=== PATIENT | male | born 1995 | race Caucasian/White ===

== ENCOUNTER 2017-05-16 15:14 | Emergency (ER) | payer BC, OTHER ==
[~2017-05-16] VITALS: Ht 180.3 cm; Wt 61.0 kg
[2017-05-16 15:15] VITALS: TEMP 36.6; O2SAT 98; Ht 180.3 cm; Wt 61.0 kg
[2017-05-16] MEDS ORDERED: LIDOCAINE/EPINEPH/TETRACAINE 1 EA SYR EXT SCH (15:30)
[2017-05-16 16:10] LABS: CALCIUM 8.5 mg/dl (8.5-10.1); CREATININE 0.92 mg/dl (0.60-1.40); POTASSIUM 3.6 mmol/L (3.5-5.1)
[2017-05-16] MEDS ORDERED: XYLOCAINE 1%/SOD BICARB 20 ML VIAL INFIL ONE (16:59)
--- NOTE | 2017-05-16 17:16 | DIAGNOSTIC IMAGING REPORT ---
CT OF THE CERVICAL SPINE CLINICAL HISTORY: Neck pain status post trauma COMPARISON STUDY: No previous studies for comparison. CT DOSE: TECHNIQUE: CT scan of the cervical spine was performed from the skull base to the thoracic inlet. Images are reviewed in the axial, sagittal, and coronal planes. IV contrast was not administered for this examination. A dose lowering technique was utilized adhering to the principles of ALARA. FINDINGS: The visualized portions of the lung apices reveal no evidence of pneumothorax. The prevertebral soft tissues are normal. No fractures or subluxations are visualized. IMPRESSION: No evidence of acute fracture or traumatic subluxation. Electronically signed by: Cody Cortez M.D. 05/16/2017 5:15 PM Dictated Date/Time: 05/16/2017 5:12 PM
--- NOTE | 2017-05-16 17:16 | DIAGNOSTIC IMAGING REPORT ---
CT HEAD WITHOUT CONTRAST (CT) CLINICAL HISTORY: Head pain status post trauma COMPARISON STUDY: No previous studies for comparison. TECHNIQUE: Axial CT of the brain is performed from the vertex to the skull base. IV contrast was not administered for this examination. A dose lowering technique was utilized adhering to the principles of ALARA. CT DOSE: 1017.33 mGy.cm FINDINGS: There is motion artifact degrading the vertex. No intra or extra-axial mass lesions are visualized. There is no CT evidence of acute cortical infarction. There is no evidence of midline shift. There is no acute hemorrhage. No calvarial fractures are visualized. There is no evidence of pathologic ventricular dilatation. There is a small inflammatory polyp/retention cyst within the sphenoid. IMPRESSION: Study compromised by motion artifact. No acute intracranial findings Electronically signed by: Cody Cortez M.D. 05/16/2017 5:15 PM Dictated Date/Time: 05/16/2017 5:10 PM
[2017-05-17 00:09] VITALS: BP 119/70; PULSE 71; O2SAT 99
--- NOTE | 2017-05-17 00:35 | EMERGENCY ROOM VISIT NOTE ---
History First contact with patient: 15:16 Chief Complaint: ALCOHOL OVERDOSE Stated Complaint: ETOH, FALL, LAC ABOVE R EYE History of Present Illness The patient is a 22 year old male who presents to the Emergency Room via ambulance for evaluation of injuries after suffering a fall. The patient reportedly has a right forehead laceration. The patient did vomit on route to our facility. Upon further questioning, the patient is not very conversant, and does not quantify the amount of alcohol he drank. When asked if the patient is a student here at [facility], he denies. The patient denies any pain. Review of Systems Unable to review on initial exam secondary to intoxicated state. Upon reevaluation, 10 system review was performed with the patient, and was unremarkable. Past Medical/Surgical History Medical Problems: (1) No significant past medical history Surgical Problems: (1) No history of previous surgery Family History Unremarkable Social History Smoking Status: Never Smoker Alcohol Use: occasionally Marital Status: single Current/Historical Medications Unable to Obtain Active Prescriptions or Reported Meds Physical Exam Vital Signs Date Time Temp Pulse Resp B/P (MAP) Pulse Ox O2 Delivery O2 Flow Rate FiO2 05/17/17 00:09 71 20 119/70 99 05/16/17 22:42 79 20 123/66 98 Room Air 05/16/17 22:06 78 20 113/69 97 Room Air 05/16/17 21:08 83 19 98/53 100 Room Air 05/16/17 20:36 81 17 89/49 05/16/17 19:46 85 18 101/47 05/16/17 19:21 81 05/16/17 19:08 88 20 108/62 05/16/17 18:30 82 18 109/63 97 Room Air 05/16/17 17:49 82 18 98/53 96 Room Air 05/16/17 16:13 81 20 108/65 99 Room Air 05/16/17 15:43 76 20 113/76 97 Room Air 05/16/17 15:25 74 05/16/17 15:15 98 Room Air 05/16/17 15:15 36.6 82 16 121/79 99 Room Air Physical Exam CONSTITUTIONAL: Healthy and well nourished appearing male. GCS score of 12 with spontaneous eye opening, verbal response with inappropriate words, and motor response moving with localize pain. When asked, the patient states that he is not a [facility] student. HEENT: Examination shows a 2 cm horizontal laceration just above the right upper eyebrow margin. No active bleeding or hematoma. Pupils equal, round and reactive. No subconjunctival hemorrhage, epistaxis, hemotympanum, raccoon's eyes or Faria sign. NECK: The patient is exhibiting full active range of motion without discomfort. RESPIRATORY: Clear to auscultation bilaterally with no wheezing, crackles, rhonchi or stridor. CARDIOVASCULAR: Regular rate and rhythm with no murmurs, rubs or gallops. GASTROINTESTINAL: Bowel sounds present in all quadrants. Soft and nontender to palpation. MUSCULOSKELETAL: Full range of motion of all joints without any obvious discomfort. INTEGUMENTARY: No rash or other significant dermatologic conditions noted. NEUROLOGIC: No focal neurologic deficits noted. Medical Decision & Procedures ER Provider Diagnostic Interpretation: Noncontrast CT of the head and cervical spine did not show any acute fractures or intracranial bleed. Radiologist reports were also reviewed and are as follows: CT HEAD WITHOUT CONTRAST (CT) CLINICAL HISTORY: Head pain status post trauma COMPARISON STUDY: No previous studies for comparison. TECHNIQUE: Axial CT of the brain is performed from the vertex to the skull base. IV contrast was not administered for this examination. A dose lowering technique was utilized adhering to the principles of ALARA. CT DOSE: 1017.33 mGy.cm FINDINGS: There is motion artifact degrading the vertex. No intra or extra-axial mass lesions are visualized. There is no CT evidence of acute cortical infarction. There is no evidence of midline shift. There is no acute hemorrhage. No calvarial fractures are visualized. There is no evidence of pathologic ventricular dilatation. There is a small inflammatory polyp/retention cyst within the sphenoid. IMPRESSION: Study compromised by motion artifact. No acute intracranial findings CT OF THE CERVICAL SPINE CLINICAL HISTORY: Neck pain status post trauma COMPARISON STUDY: No previous studies for comparison. CT DOSE: TECHNIQUE: CT scan of the cervical spine was performed from the skull base to the thoracic inlet. Images are reviewed in the axial, sagittal, and coronal planes. IV contrast was not administered for this examination. A dose lowering technique was utilized adhering to the principles of ALARA. FINDINGS: The visualized portions of the lung apices reveal no evidence of pneumothorax. The prevertebral soft tissues are normal. No fractures or subluxations are visualized. IMPRESSION: No evidence of acute fracture or traumatic subluxation. Laboratory Results 05/16/17 15:31 Test 05/16/17 15:31 Anion Gap 8.0 mmol/L (3-11) Est Creatinine Clear Calc Drug Dose 108.7 ml/min Estimated GFR () 136.4 Estimated GFR (Non- 117.6 BUN/Creatinine Ratio 9.8 (10-20) Calcium Level 8.5 mg/dl (8.5-10.1) Ethyl Alcohol mg/dL 411.3 mg/dl (0-3) The above labs were reviewed. Medications Administered Medications (Trade) Dose Ordered Sig/Falguni Route Start Time Stop Time Status Last Admin Dose Admin Lidocaine HCl (Buffered Lidocaine 1% Inj) 20 ml [facility] ONCE INFIL 05/16/17 16:59 05/16/17 17:00 DC 05/16/17 16:59 20 ML Procedure Laceration repair was performed under local anesthesia. Using buffered 1% lidocaine without epinephrine, good local anesthesia was administered. The peripheral tissue was cleansed with iodine, then the wound was irrigated with normal saline. Exploration of the wound does not show any obvious debris or bony injury. The wound was then approximated using 6-0 nylon simple interrupted sutures. Bacitracin dressing was applied. ED Course Patient history and physical exam were performed. Nurse's notes were reviewed. The patient does not appear in any acute distress, however does not engage in conversation, likely secondary to alcohol intoxication. Strong smell of alcohol is present with vomitus all over his clothing. The patient was stripped of his wet clothing, the patient was placed on tenant relations coordinator. Labs were also drawn. Noncontrast CT of the head and cervical spine were performed and were normal. When the patient returned from CT scan, facial laceration repair was performed under local anesthesia. The patient was placed in prone position on tenant relations coordinator. The patient had no further adverse events while in the emergency department. Upon reevaluation approximately 8 hours later, the patient was laying in bed with his eyes open. Secondary assessment was performed and was normal. The patient reports that he is visiting the area. I did discuss his alcohol level. The patient was conversing appropriately. The patient's friend didn't come to the emergency department to pick him up. The patient was instructed to remain well-hydrated today, avoiding any further alcohol over the next 24 hours. The patient was encouraged to drink responsibly in the future. The patient was happy with plan of care, and voiced understanding of all discharge instructions. Medical Decision Head Trauma GCS Score: 12 Medication Reconcilliation Current Medication List: was personally reviewed by me Blood Pressure Screening Patient's blood pressure: Normal blood pressure Impression Primary Impression: Alcohol overdose Additional Impression: Facial laceration Departure Information Prescriptions Unable to Obtain Active Prescriptions or Reported Meds Referrals No Doctor, Assigned (PCP) Patient Instructions My [facility] Problem Qualifiers Primary Impression: Alcohol overdose Encounter type: initial encounter Injury intent: undetermined intent Qualified Codes: T51.94XA - Toxic effect of unspecified alcohol, undetermined, initial encounter Additional Impression: Facial laceration Encounter type: initial encounter Qualified Codes: S01.81XA - Laceration without foreign body of other part of head, initial encounter
== END 2017-05-17 00:09 | disposition home or self-care (01) ==
LOC: C.EDC 15:16
DX: T51.94XA Toxic effect of unspecified alcohol, undetermined, initial encounter (principal); S01.81XA Laceration without foreign body of other part of head, initial encounter; W19.XXXA Unspecified fall, initial encounter; Y90.8 Blood alcohol level of 240 mg/100 ml or more